=== PATIENT | female | born 1970 | race Caucasian/White ===

== ENCOUNTER 2020-02-03 15:07 | Emergency (ER) | payer OTHER ==
[~2020-02-03] VITALS: Ht 160 cm; Wt 47.6 kg
--- NOTE | 2020-02-03 15:39 | NUR ---
dr rolon at bedside for eval.
--- NOTE | 2020-02-03 16:09 | NUR ---
radiology at bedside for chest xray.
--- NOTE | 2020-02-03 17:13 | NUR ---
medically cleared. discharged to [facility] in stable condition.
[2020-02-03 17:15] VITALS: BP 136/84
== END 2020-02-03 17:15 ==
LOC: ER 15:11
DX: G58.0 Intercostal neuropathy (principal)
CPT/HCPCS: 71100-TC